=== PATIENT | male | born 1990 | race Hispanic/Latino ===

== ENCOUNTER 2021-05-03 15:28 | Emergency (ER) | payer OTHER ==
[~2021-05-03] VITALS: Ht 167.6 cm; Wt 75.9 kg
[2021-05-03] MEDS ORDERED: ACETAMINOPHEN 325 MG TAB PO ONE (19:30)
--- NOTE | 2021-05-03 20:04 | REPVR ---
PROCEDURE INFORMATION: Exam: CT Maxillofacial Without Contrast Exam date and time: 05/03/2021 7:43 PM Age: 30 years old Clinical indication: Other: Loc, ant scalp laceration, headache, dizziness, fall 3 days TECHNIQUE: Imaging protocol: Computed tomography images of the face without contrast. Radiation optimization: All CT scans at this facility use at least one of these dose optimization techniques: automated exposure control; mA and/or kV adjustment per patient size (includes targeted exams where dose is matched to clinical indication); or iterative reconstruction. COMPARISON: No relevant prior studies available. FINDINGS: Orbital cavity: Orbits are normal. Globes are unremarkable. Bones/joints: No acute fracture seen. The cartilaginous nasal septum is deviated to the left. Bradley right deviation and spurring of the nasal septum which contacts the right middle and inferior turbinates. Paranasal sinuses: Trace mucosal thickening in the inferior maxillary sinuses. No air-fluid levels. Soft tissues: Frontal scalp soft tissue swelling. IMPRESSION: No facial bone fracture seen. Electronically signed by: Christina Roman On 05/03/2021 20:03:54 PM
--- NOTE | 2021-05-03 20:07 | REPVR ---
PROCEDURE INFORMATION: Exam: CT Cervical Spine Without Contrast Exam date and time: 05/03/2021 7:43 PM Age: 30 years old Clinical indication: Other: Loc, ant scalp laceration, headache, dizziness, fall 3 days TECHNIQUE: Imaging protocol: Computed tomography images of the cervical spine without contrast. Radiation optimization: All CT scans at this facility use at least one of these dose optimization techniques: automated exposure control; mA and/or kV adjustment per patient size (includes targeted exams where dose is matched to clinical indication); or iterative reconstruction. COMPARISON: No relevant prior studies available. FINDINGS: Bones/joints: Anatomic alignment. No acute fracture seen. Discs/Spinal canal/Neural foramina: Minimal prevertebral spondylosis. No significant disc protrusion. No severe spinal canal stenosis. No significant neural foraminal narrowing. Lungs: Lung apices are normal. Soft tissues: Unremarkable. IMPRESSION: No cervical spine fracture seen. Electronically signed by: Christina Roman On 05/03/2021 20:07:30 PM
--- NOTE | 2021-05-03 20:10 | REPVR ---
PROCEDURE INFORMATION: Exam: CT Head Without Contrast Exam date and time: 05/03/2021 7:43 PM Age: 30 years old Clinical indication: Other: Loc, ant scalp laceration, headache, dizziness, fall 3 days TECHNIQUE: Imaging protocol: Computed tomography of the head without contrast. Radiation optimization: All CT scans at this facility use at least one of these dose optimization techniques: automated exposure control; mA and/or kV adjustment per patient size (includes targeted exams where dose is matched to clinical indication); or iterative reconstruction. COMPARISON: No relevant prior studies available. FINDINGS: Brain: No hemorrhage. Unremarkable white matter for the patient's age. No mass effect. No evolving territorial infarct. Cerebral ventricles: There is a cavum septum pellucidum and cavum vergae, normal variant. No ventriculomegaly. Paranasal sinuses: Visualized sinuses are unremarkable. No fluid levels. Mastoid air cells: Visualized mastoid air cells are well aerated. Bones/joints: Unremarkable. No acute fracture. Soft tissues: Right frontal scalp soft tissue swelling. IMPRESSION: No acute intracranial abnormality seen. Electronically signed by: Christina Roman On 05/03/2021 20:09:42 PM
[2021-05-03 20:31] VITALS: BP 127/74
== END 2021-05-03 20:31 | disposition home or self-care (01) ==
LOC: M ED 15:28
DX: S06.0X0A Concussion without loss of consciousness, initial encounter (principal); S01.81XA Laceration without foreign body of other part of head, initial encounter; W19.XXXA Unspecified fall, initial encounter; Y92.9 Unspecified place or not applicable; Y93.89 Activity, other specified; Y99.9 Unspecified external cause status; Z91.041 Radiographic dye allergy status